=== PATIENT | female | born 2000 | race African-American/Black ===

== ENCOUNTER 2019-09-13 22:55 | Emergency (ER) | payer SELFPAY ==
[~2019-09-13] VITALS: Ht 162.6 cm; Wt 62.0 kg
[2019-09-13] MEDS ORDERED: VISCOUS LIDOCAINE 2% 15 ML UDC MM STA (23:18)
[2019-09-13] MEDS ORDERED: MAGNESIUM/ALUMINUM HYDROXIDE/SIMETHICONE 30ML UDC PO ONE (23:30)
[2019-09-13 23:37] LABS: CLARITY URINE CLOUDY (CLEAR); COLOR URINE YELLOW (YELLOW); KETONES URINE 3+ (NEGATIVE); LEUKOCYTE ESTERASE URINE NEGATIVE (NEGATIVE); NITRITE URINE NEGATIVE (NEGATIVE); OCCULT BLOOD URINE TRACE (NEGATIVE); PROTEIN URINE 1+ (NEGATIVE); SPECIFIC GRAVITY URINE 1.029 (1.005-1.030)
[2019-09-14] MEDS ORDERED: ONDANSETRON 4MG ODT PO ONE (01:00)
[2019-09-14 01:20] VITALS: BP 130/80
== END 2019-09-14 01:21 | disposition home or self-care (01) ==
LOC: ER 22:55
DX: K29.70 Gastritis, unspecified, without bleeding (principal); R10.9 Unspecified abdominal pain; Z98.890 Other specified postprocedural states
CPT/HCPCS: 81003; 81025; 93005; 99284; Q0162

== ENCOUNTER 2019-09-14 16:35 | Emergency (ER) | payer SELFPAY ==
[~2019-09-14] VITALS: Ht 165.1 cm; Wt 52.0 kg
[2019-09-14] MEDS ORDERED: ONDANSETRON 4MG ODT PO ONE (17:00)
[2019-09-14] MEDS ORDERED: SODIUM CHLORIDE 0.9% 1,000 ML IV ONE (18:00)
[2019-09-14] MEDS ORDERED: ONDANSETRON HCL 4MG/2ML INJ IV ONE (18:00)
[2019-09-14] MEDS ORDERED: HYDROCODONE/ACETAMINOPHEN 5/325MG TABLET PO ONE (18:30)
[2019-09-14] MEDS ORDERED: KETOROLAC 30MG/ML VIAL IV ONE (18:45)
[2019-09-14 19:27] LABS: HEMATOCRIT. 38.7 % (36.0-48.0); HEMOGLOBIN. 12.7 g/dL (12.0-16.0); MEAN CORPUSCULAR HEMOGLOBIN 26.9 pg (28.0-32.0); MEAN CORPUSCULAR VOLUME 82.1 fL (81.0-99.0); MEAN PLATELET VOLUME 8.3 fl (7.4-10.4); PLATELET 272 x1000/uL (130-400); RED BLOOD CELL COUNT 4.71 mill/uL (4.2-5.4); RED CELL DISTRIBUTION WIDTH 16.6 % (11.6-14.6)
[2019-09-14 19:33] LABS: CHLORIDE 102 mEq/L (98-107)
[2019-09-14] MEDS ORDERED: VISCOUS LIDOCAINE 2% 15 ML UDC PO ONE (19:45)
[2019-09-14] MEDS ORDERED: POTASSIUM CHLORIDE 20MEQ TABLET SR PO ONE (19:45)
[2019-09-14] MEDS ORDERED: MAGNESIUM/ALUMINUM HYDROXIDE/SIMETHICONE 30ML UDC PO ONE (19:45)
[2019-09-14 20:20] VITALS: BP 123/70
[2019-09-14 20:38] LABS: PLATELET ESTIMATE NORMAL
== END 2019-09-14 20:22 | disposition home or self-care (01) ==
LOC: ER 16:35
DX: N39.0 Urinary tract infection, site not specified (principal); E86.0 Dehydration; Z88.6 Allergy status to analgesic agent
CPT/HCPCS: 36415; 74018; 80053; 83690; 85025; 96361; 96374; 96375; 99284; J1885; J2405; J7030; Q0162

== ENCOUNTER 2019-11-30 07:39 | Emergency (ER) | payer MEDICAID ==
[~2019-11-30] VITALS: Ht 162.6 cm; Wt 64.0 kg
[2019-11-30] MEDS ORDERED: ONDANSETRON HCL 4MG/2ML INJ IV STA (08:30)
[2019-11-30] MEDS ORDERED: KETOROLAC 30MG/ML VIAL IV STA ×2 (08:30→13:33)
[2019-11-30] MEDS ORDERED: FAMOTIDINE 20MG/2ML VIAL IV ONE (08:30)
[2019-11-30 08:55] LABS: BASOPHILS % 0.6 % (0.0-2.0); EOSINOPHILS % 0.4 % (0.0-5.0); HEMATOCRIT. 36.8 % (36.0-48.0); HEMOGLOBIN. 12.1 g/dL (12.0-16.0); LYMPHOCYTES % 14.3 % (20.0-50.0); MEAN PLATELET VOLUME 7.7 fl (7.4-10.4); MONOCYTES % 5.4 % (2.0-8.0); NEUTROPHILS % 79.3 % (40.0-76.0); PLATELET 319 x1000/uL (130-400); RED BLOOD CELL COUNT 4.33 mill/uL (4.2-5.4)
[2019-11-30 09:01] LABS: CHLORIDE 107 mEq/L (98-107)
[2019-11-30] MEDS ORDERED: ONDANSETRON 4MG ODT PO ONE (09:15)
[2019-11-30] MEDS ORDERED: KETOROLAC 30MG/ML VIAL IM ONE (09:30)
[2019-11-30 09:42] LABS: HCG SCREEN NEGATIVE
[2019-11-30] MEDS ORDERED: SODIUM CHLORIDE 0.9% 1,000 ML IV ONE (10:28)
[2019-11-30 11:24] LABS: CLARITY URINE TURBID (CLEAR); COLOR URINE YELLOW (YELLOW); KETONES URINE 2+ (NEGATIVE); LEUKOCYTE ESTERASE URINE 1+ (NEGATIVE); NITRITE URINE NEGATIVE (NEGATIVE); OCCULT BLOOD URINE 3+ (NEGATIVE); PH URINE 6.5 (4.5-8.0); PROTEIN URINE 1+ (NEGATIVE); SPECIFIC GRAVITY URINE 1.024 (1.005-1.030)
[2019-11-30] MEDS ORDERED: MORPHINE SULFATE 4 MG/ML CPJ (NOT FOR IM USE) IV STA (11:50)
[2019-11-30] MEDS ORDERED: TAMSULOSIN HCL 0.4MG SR CAPSULE PO ONE (14:00)
[2019-11-30] MEDS ORDERED: ONDANSETRON HCL 4MG/2ML INJ IV ONE (14:00)
[2019-11-30 14:22] VITALS: BP 124/82
== END 2019-11-30 14:24 | disposition left against medical advice (07) ==
LOC: ER 07:39
DX: N20.1 Calculus of ureter (principal)
CPT/HCPCS: 36415; 74176; 76705; 80053; 81003; 83690; 84703; 85025; 96361; 96372; 96374; 96375; 96376; 99285; J1885; J2270; J2405; J3490; J7030; Q0162

== ENCOUNTER 2019-11-30 20:52 | Emergency (ER) | payer MEDICAID ==
[~2019-11-30] VITALS: Ht 162.6 cm; Wt 61.0 kg
[2019-11-30 20:58] VITALS: BP 145/80
[2019-11-30] MEDS ORDERED: MORPHINE SULFATE 4 MG/ML CPJ (NOT FOR IM USE) IV STA (22:46)
[2019-11-30] MEDS ORDERED: SODIUM CHLORIDE 0.9% 1,000 ML IV ONE (22:53)
[2019-11-30] MEDS ORDERED: CEFTRIAXONE 1 G PREMIX 50 ML IV ONE (23:00)
[2019-11-30] MEDS ORDERED: METOCLOPRAMIDE HCL 10MG/2ML VIAL IV ONE (23:00)
== END 2019-12-01 00:25 | disposition home or self-care (01) ==
LOC: ER 20:52
DX: N20.0 Calculus of kidney (principal); N39.0 Urinary tract infection, site not specified
CPT/HCPCS: 96365; 96375; 99284; J0696; J2270; J2765; J7030

== ENCOUNTER 2020-09-09 16:43 | Inpatient (IN) | payer MEDICAID ==
[~2020-09-09] VITALS: Ht 162.6 cm; Wt 64.0 kg
[2020-09-09] MEDS ORDERED: ACETAMINOPHEN 325MG TABLET PO PRN (18:15)
[2020-09-09] MEDS ORDERED: ONDANSETRON HCL 4MG/2ML INJ IV ONE (18:15)
[2020-09-09] MEDS ORDERED: SODIUM CHLORIDE 0.9% 1,000 ML IV ONE (18:15)
[2020-09-09 19:03] LABS: CHLORIDE 105 mEq/L (98-107)
[2020-09-09 19:11] LABS: HEMATOCRIT. 36.5 % (36.0-48.0); HEMOGLOBIN. 12.3 g/dL (12.0-16.0); MEAN CORPUSCULAR HEMOGLOBIN 28.4 pg (28.0-32.0); MEAN PLATELET VOLUME 7.6 fl (7.4-10.4); PLATELET 323 x1000/uL (130-400); RED BLOOD CELL COUNT 4.34 mill/uL (4.2-5.4); RED CELL DISTRIBUTION WIDTH 15.7 % (11.6-14.6)
[2020-09-09 19:15] LABS: CLARITY URINE CLOUDY (CLEAR); COLOR URINE YELLOW (YELLOW); KETONES URINE 4+ (NEGATIVE); LEUKOCYTE ESTERASE URINE NEGATIVE (NEGATIVE); NITRITE URINE NEGATIVE (NEGATIVE); OCCULT BLOOD URINE 3+ (NEGATIVE); PH URINE 6.5 (4.5-8.0); PROTEIN URINE TRACE (NEGATIVE); SPECIFIC GRAVITY URINE 1.027 (1.005-1.030); UROBILINOGEN URINE 0.2 E.U./dL (0.2-1.0)
[2020-09-09 19:27] LABS: B-HCG QUANTITATIVE 47684 mIU/mL (<3)
[2020-09-09 19:37] LABS: PLATELET ESTIMATE NORMAL
[2020-09-09] MEDS ORDERED: DEXT 5%/LACTATED RINGERS 1,000 ML IV NR (20:00)
[2020-09-09] MEDS ORDERED: ONDANSETRON HCL 4MG/2ML INJ IV NR (20:00)
[2020-09-09] MEDS ORDERED: ACETAMINOPHEN 650MG SUPP PR ONE (22:30)
[2020-09-09] MEDS ORDERED: PROMETHAZINE HCL 25MG SUPP PR ONE (22:30)
[2020-09-09] MEDS ORDERED: DEXAMETHASONE 10 MG/ML VIAL IV ONE (23:00)
[2020-09-10] MEDS ORDERED: MORPHINE SULFATE 2 MG/ML CPJ (NOT FOR IM USE) IV ONE ×2 (00:30→03:45)
[2020-09-10] MEDS ORDERED: ONDANSETRON HCL 4MG/2ML INJ IV ONE (03:15)
[2020-09-10] MEDS ORDERED: PROMETHAZINE HCL 25MG SUPP PR ONE (04:00)
[2020-09-10] MEDS ORDERED: CEFAZOLIN 2000 MG IV ONE (08:30)
[2020-09-10] MEDS ORDERED: DEXT 5%/LACTATED RINGERS 1,000 ML IV ONE (08:30)
[2020-09-10 09:30] VITALS: BP 119/98
[2020-09-10] MEDS ORDERED: CEFAZOLIN 2,000 MG in DEXT 5% WATER 100 ML IV NR ×2 (09:30→13:30)
[2020-09-10] MEDS ORDERED: KCL 20MEQ/100ML PREMIX 100 ML IV NR ×2 (09:30→13:00)
[2020-09-10] MEDS: ONDANSETRON HCL 4MG/2ML INJ IV PRN ×2 (10:01→20:39)
[2020-09-10] MEDS ORDERED: CITRIC ACID/SODIUM CITRATE SOLN 30ML UDC PO NR (10:30)
[2020-09-10] MEDS: CYANOCOBALAMIN 1000MCG/ML VIAL IM NR ×2 (11:41→11:42)
[2020-09-10] MEDS: FAMOTIDINE 20MG/2ML VIAL IV SCH ×2 (11:44→20:39)
[2020-09-10 12:00] VITALS: BP 136/77
[2020-09-10] MEDS ORDERED: CEFAZOLIN 1000MG PREMIX 50 ML IV SCH (15:00)
[2020-09-10 16:00] VITALS: BP 137/80
[2020-09-10] MEDS ORDERED: HYDROCODONE/ACETAMINOPHEN 5/325MG TABLET PO PRN (19:00)
[2020-09-10] MEDS: DEXT 5%/0.9% NACL 1,000 ML IV SCH (20:01)
[2020-09-10] MEDS: CEFAZOLIN 1000MG PREMIX 50 ML IV SCH (21:07)
[2020-09-11] VITALS: BP 122/87
[2020-09-11] MEDS: ONDANSETRON HCL 4MG/2ML INJ IV PRN (02:27)
[2020-09-11 04:00] VITALS: BP 134/78
[2020-09-11] MEDS: DEXT 5%/0.9% NACL 1,000 ML IV SCH (05:32)
[2020-09-11] MEDS: CEFAZOLIN 1000MG PREMIX 50 ML IV SCH ×3 (05:32→21:10)
[2020-09-11] MEDS: METOCLOPRAMIDE HCL 10MG/2ML VIAL IV SCH ×2 (05:47)
[2020-09-11] MEDS ORDERED: KETOROLAC 60MG/2ML VIAL IM ONE (06:15)
[2020-09-11] MEDS ORDERED: HYDROMORPHONE HCL/PF 2MG/ML CPJ IV SCH (06:30)
[2020-09-11 07:02] LABS: HEMOGLOBIN 12.5 g/dL (12.0-16.0); MEAN CORPUSCULAR HEMOGLOBIN 27.1 pg (28.0-32.0); MEAN CORPUSCULAR VOLUME 86.7 fL (81.0-99.0); PLATELET 262 x1000/uL (130-400); RED BLOOD CELL COUNT 4.62 mill/uL (4.2-5.4); RED CELL DISTRIBUTION WIDTH 16.4 % (11.6-14.6)
[2020-09-11 07:13] LABS: CHLORIDE 106 mEq/L (98-107)
[2020-09-11 08:00] VITALS: BP_SYST 109; BP_SYST 99; BP_DIAS 45; BP_DIAS 83
[2020-09-11] MEDS ORDERED: ZINC SULF/CUSO4 P-HYD/MANG/CR 10 ML VIAL IV SCH (08:45)
[2020-09-11] MEDS ORDERED: CYANOCOBALAMIN 1000MCG/ML VIAL IM SCH (09:00)
[2020-09-11] MEDS ORDERED: POTASSIUM CHLORIDE 20MEQ TABLET SR PO SCH ×2 (09:45→16:00)
[2020-09-11] MEDS: PANTOPRAZOLE SODIUM 40 MG/VIAL IV SCH (10:05)
[2020-09-11] MEDS: SODIUM CHLORIDE 0.9% 1,000 ML IV SCH ×3 (10:06→23:52)
[2020-09-11] MEDS: PROMETHAZINE HCL 25MG SUPP PR PRN ×2 (10:06→17:40)
[2020-09-11] MEDS: MVI, ADULT NO.1 10 ML in SODIUM CHLORIDE 0.9% 1,000 ML IV SCH (10:06)
[2020-09-11] MEDS ORDERED: POTASSIUM CHLORIDE INJ 40 MEQ in DEXT 5% WATER 500 ML IV NR (11:00)
[2020-09-11] MEDS: HYDROMORPHONE HCL/PF 2MG/ML CPJ IM PRN ×2 (11:38→21:10)
[2020-09-11 12:00] VITALS: BP 110/57
[2020-09-11] MEDS ORDERED: KETOROLAC 15MG/ML VIAL IV PRN (14:00)
[2020-09-11 16:00] VITALS: BP 101/64
[2020-09-11] MEDS ORDERED: SODIUM CHLORIDE 0.9% 1,000 ML IV SCH (17:00)
[2020-09-11 20:00] VITALS: BP 115/59
[2020-09-11] MEDS ORDERED: DIPHENHYDRAMINE 50MG/ML VIAL IV SCH (21:00)
[2020-09-12] VITALS: BP 103/50
[2020-09-12 04:00] VITALS: BP 119/61
[2020-09-12] MEDS: CEFAZOLIN 1000MG PREMIX 50 ML IV SCH (05:06)
[2020-09-12 05:42] LABS: CHLORIDE 106 mEq/L (98-107)
[2020-09-12 07:54] LABS: BASOPHILS % 0.5 % (0.0-2.0); EOSINOPHILS % 0.9 % (0.0-5.0); HEMATOCRIT. 35.3 % (36.0-48.0); HEMOGLOBIN. 11.6 g/dL (12.0-16.0); LYMPHOCYTES % 27.2 % (20.0-50.0); MEAN CORPUSCULAR HEMOGLOBIN 28.1 pg (28.0-32.0); MEAN CORPUSCULAR VOLUME 85.4 fL (81.0-99.0); MEAN PLATELET VOLUME 8.1 fl (7.4-10.4); MONOCYTES % 9.1 % (2.0-8.0); NEUTROPHILS % 62.3 % (40.0-76.0); PLATELET 243 x1000/uL (130-400); RED BLOOD CELL COUNT 4.14 mill/uL (4.2-5.4)
[2020-09-12 08:00] VITALS: BP 100/55
[2020-09-12] MEDS: PANTOPRAZOLE SODIUM 40 MG/VIAL IV SCH (09:06)
[2020-09-12] MEDS: SODIUM CHLORIDE 0.9% 1,000 ML IV SCH (09:06)
[2020-09-12] MEDS: MVI, ADULT NO.1 10 ML in SODIUM CHLORIDE 0.9% 1,000 ML IV SCH (09:06)
[2020-09-12 12:00] VITALS: BP 101/59
[2020-09-12 12:17] VITALS: BP 101/59
== END 2020-09-12 12:44 | disposition home or self-care (01) | DRG 566 ==
LOC: ER 16:43 → 6EST 09-10 02:24 → ENRESERV 09-10 08:23
PROVIDERS: ADMIT Obstetrics & Gynecology; ATTEND Obstetrics & Gynecology
DX: O21.1 Hyperemesis gravidarum with metabolic disturbance (principal); M41.9 Scoliosis, unspecified; O99.111 Other diseases of the blood and blood-forming organs and certain disorders involving the immune mechanism complicating pregnancy, first trimester; O99.891 Other specified diseases and conditions complicating pregnancy; J45.909 Unspecified asthma, uncomplicated; O99.511 Diseases of the respiratory system complicating pregnancy, first trimester; D72.829 Elevated white blood cell count, unspecified; O99.611 Diseases of the digestive system complicating pregnancy, first trimester; K29.70 Gastritis, unspecified, without bleeding; Z88.8 Allergy status to other drugs, medicaments and biological substances; Z3A.01 Less than 8 weeks gestation of pregnancy; Z88.6 Allergy status to analgesic agent
CPT/HCPCS: 36415; 76801; 80048; 80053; 81003; 84443; 84702; 85025; 85027; 93005; 99285; C1893; C9113; J0690; J1100; J1170; J1200; J1885; J2270; J2405; J2765; J3420; J3480; J3490; J7030; J7040; J7042; J7060